=== PATIENT | female | born 1960 | race Caucasian/White ===

== ENCOUNTER 2021-01-02 20:03 | Emergency (ER) | payer MEDICAID, OTHER ==
[~2021-01-02] VITALS: Ht 165.1 cm; Wt 74.8 kg
[2021-01-02] MEDS ORDERED: cloNIDine HCL 0.1 MG TAB PO ONE (21:00)
[2021-01-02 22:39] VITALS: BP 175/84
== END 2021-01-02 22:39 ==
LOC: ER 20:06
DX: I16.0 Hypertensive urgency (principal); Z88.0 Allergy status to penicillin

== ENCOUNTER 2024-04-04 12:53 | Inpatient (IN) | payer OTHER, MEDICAID ==
[~2024-04-04] VITALS: Ht 165.1 cm; Wt 95.1 kg
--- NOTE | 2024-04-04 13:16 | ED.PDOC ---
HPI Comments 63 y.o female with PMHx of HTN and AFIB, presents to the ED via EMS for an evaluation of AFIB with RVR. EMS reports patient is coming from [facility] s/p AFIB with RVR and elevated troponin x 3. Patient reports last night she developed substernal chest pain, went to the ED at 0300 but at this time, patient denies any pain or symptoms. Patient had heart rate between 150-160 upon her presentation at [facility] and arrives at this ED with rate of 1280-130. Patient admits to using Heroine 2 days ago and had additional history of methamphetamine, marijuana and tobacco use. 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 Rest Cardiac Risk Factors: HTN PE Risk Factors: None History of: Similar pain in past Modifying Factors: Nothing Past Medical History PAST MEDICAL HISTORY: AFIB, HTN Surgical History: Tonsillectomy, 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 Family History Family History: No family hx of Cancer, No family hx of DM Social History Smoker: Cigarettes Alcohol: Denies ETOH Use Drugs: Heroin, Marijuana, Methamphetamine Lives In: Home Constitutional: denies: chills, diaphoresis, fatigue, fever, malaise, sweats, weakness, others EENTM: denies: blurred vision, double vision, ear bleeding, ear discharge, ear drainage, ear pain, ear ringing, eye pain, eye redness, hearing loss, mouth pain, mouth swelling, nasal discharge, nose bleeding, nose congestion, nose pain, photophobia, tearing, throat pain, throat swelling, voice changes, others Respiratory: denies: cough, hemoptysis, orthopnea, SOB at rest, shortness of breath, SOB with excertion, stridor, wheezing, others Cardiovascular: denies: chest pain, dizzy spells, diaphoresis, Dyspnea on exertion, edema, irregular heart beat, left arm pain, lightheadedness, palpitations, PND, syncope, others Gastrointestinal: denies: abdomen distended, abdominal pain, blood streaked bowels, constipated, diarrhea, dysphagia, difficulty swallowing, hematemesis, melena, nausea, poor appetite, poor fluid intake, rectal bleeding, rectal pain, vomiting, others Genitourinary: denies: abnormal vagina bleeding, burning, dyspareunia, dysuria, flank pain, frequency, hematuria, incontinence, pain, , vagina discharge, urgency, others Neurological: denies: dizziness, fainting, headache, left sided numbness, left sided weakness, numbness, paresthesia, pre-existing deficit, right sided numbness, right sided weakness, seizure, speech problems, tingling, tremors, weakness, others Musculoskeletal: denies: back pain, gout, joint pain, joint swelling, muscle pain, muscle stiffness, neck pain, others Integumetry: denies: bruises, change in color, change in hair/nails, dryness, laceration, lesions, lumps, rash, wounds, others Allergic/Immunocompromised: denies: Difficulty Healing, Frequent Infections, Hives, Itching, others Hematologic/Lymphatic: denies: anemia, blood clots, easy bleeding, easy bruising, swollen glands, others Endocrine: denies: excessive hunger, excessive sweating, excessive thirst, excessive urination, flushing, intolerance to cold, intolerance to heat, unexplained weight gain, unexplained weight loss, others Psychiatric: denies: anxiety, bipolar disorder, depression, hopeless, panic disorder, schizophrenia, sleepless, suicidal, others All Other Systems: Reviewed and Negative Physical Exam General Appearance: Moderate Distress HEENT: Normal ENT Inspection, Pharynx Normal, TMs Normal Neck: Full Range of Motion, Non-Tender, Normal, Normal Inspection Respiratory: Chest Non-Tender, Lungs Clear, No Accessory Muscle Use, No Respiratory Distress, Normal Breath Sounds Cardiovascular: Irregular, No Edema, No JVD, No Murmur, No Gallop, Tachycardia Breast Exam: Deferred Gastrointestinal: No Organomegaly, Non Tender, No Pulsatile Mass, Normal Bowel Sounds, Soft Genitalia: Deferred Pelvic: Deferred Rectal: Deferred Extremities: No calf tenderness, Normal capillary refill, No pedal edema Musculoskeletal : Apperance: Normal Neurologic: Alert, fox raiser II-XII nml as Tested, Motor Weakness, Normal Affect, Normal Mood, No Sensory Deficits Cerebellar Function: Normal Reflexes: Normal Skin: Dry, Normal Color, Warm Lymphatic: No Adenopathy Was a procedure done? Was a procedure done?: No CP Differential Dx Differential Diagnosis: A-fib, Angina, Electrolyte Disorder, Sinus Tachycardia X-Ray, Labs, Meds, VS Vital Signs Date Time Temp Pulse Resp B/P (MAP) Pulse Ox O2 Delivery O2 Flow Rate FiO2 04/04/24 13:00 98.6 116 18 141/70 (93) 96 Lab Test 04/04/24 14:41 04/04/24 13:49 Range/Units Prothrombin Time Pending Prothrombin Time INR Pending Activated Partial Thromboplast Time Pending Troponin I High Sensitivity Pending 5664 *H </=34 ng/L White Blood Count 7.8 4.4-10.8 10^3/uL Red Blood Count 5.70 H 4.0-5.20 10^6/uL Hemoglobin 17.2 H 12.2-16.2 g/dL Hematocrit 50.5 H 36.0-46.0 % Mean Corpuscular Volume 88.6 80.0-100.0 fL Mean Corpuscular Hemoglobin 30.2 28.0-32.0 pg Mean Corpuscular Hemoglobin Concent 34.1 32.0-36.0 g/dL Red Cell Distribution Width 14.2 11.8-14.3 % Platelet Count 204 140-450 10^3/uL Mean Platelet Volume 8.8 6.9-10.8 fL Neutrophils (%) (Auto) 68.9 37.0-80.0 % Lymphocytes (%) (Auto) 21.1 10.0-50.0 % Monocytes (%) (Auto) 9.0 0.0-12.0 % Eosinophils (%) (Auto) 0.4 0.0-7.0 % Basophils (%) (Auto) 0.6 0.0-2.0 % Neutrophils # (Auto) 5.4 1.6-8.6 10 ^3/uL Lymphocytes # (Auto) 1.6 0.4-5.4 10 ^3/uL Monocytes # (Auto) 0.7 0-1.3 10 ^3/uL Eosinophils # (Auto) 0 0-0.8 10 ^3/uL Basophils # (Auto) 0 0-0.2 10 ^3/uL Nucleated Red Blood Cells 0.4 % IV Hep-Lock has been established. The patient's troponin level came back now with 5764 The CBC is within normal limits The hospitalist did come down and see the patient immediately upon arrival to the emergency department The patient is being admitted at this time. The patient was on Cardizem as a 1 time dose what we are now starting the patient on a Cardizem drip. The patient is being admitted at this time. The patient was admitted to the [facility] The information of the elevated troponin level has been already passed on to Dr. Becerra who is the admitting hospitalist. Time of 1ST Reevaluation: 13:15 Reevaluation 1ST: Unchanged Patient Education/Counseling: Diagnosis, Treatment, Prognosis Family Education/Counseling: No Family Present Departure 1 Departure Time of Disposition: 14:48 Impression: Primary Impression: Atrial fibrillation with RVR Additional Impressions: Non-STEMI (non-ST elevated myocardial infarction) Elevated troponin Disposition: ADMITTED INPATIENT Admit to: [facility] Condition: Guarded Critical Care Note Critical Care Time?: Yes (45 min-critical care time only) Stability Stability form required: Yes Unstable for transfer: ICU, CCU, PCU, [facility] (Intensive VS monitoring), May require CPR (possible rapid decline), ED Physician Assesment (Clinical assesment) Heart Score Heart Score: Heart Score Response (Comments) Value History Moderate Suspicious 1 EKG Repolarization Disturb 1 Age >65 2 Risk Factors >3 or Hx ASHD 2 Troponin >3 x's Normal limit 2 Total 8 I personally scribed for PABLITO PHILLIPS MD ([email or web address]) on 04/04/24 at 13:16. Electronically submitted by Cyndy Vazquez ([facility]). PABLITO PHILLIPS MD Apr 04, 2024 13:16
[2024-04-04] MEDS ORDERED: HYDROcodone-ACET 5/325MG TAB PO PRN ×2 (14:15→14:30)
[2024-04-04] MEDS ORDERED: ACETAMINOPHEN 325 MG TAB PO PRN ×2 (14:15→14:30)
[2024-04-04] MEDS ORDERED: ONDANSETRON HCL 4 MG/2 ML VIAL IV PRN ×2 (14:15→14:30)
[2024-04-04] MEDS ORDERED: HEPARIN DRIP/D5W 100UNITS/ML 250 ML IV SCH (14:15)
[2024-04-04] MEDS ORDERED: MORPHINE SULFATE INJ 2 MG/ml SYRG IV PRN ×4 (14:15→14:30)
[2024-04-04] MEDS ORDERED: DOCUSATE SOD 100 MG CAP PO PRN ×2 (14:15→14:30)
[2024-04-04] MEDS ORDERED: NITROGLYCERIN 0.4 MG SL TAB SL PRN ×2 (14:15→14:30)
[2024-04-04] MEDS ORDERED: SODIUM CHLORIDE 0.9% 1,000 ML IV SCH (14:15)
[2024-04-04 14:34] LABS: Basophils # (auto) 0 10 ^3/uL (0-0.2); Basophils % (auto) 0.6 % (0.0-2.0); Eosinophils # (auto) 0 10 ^3/uL (0-0.8); Eosinophils % (auto) 0.4 % (0.0-7.0); Hematocrit 50.5 % (36.0-46.0); Hemoglobin 17.2 g/dL (12.2-16.2); Lymphocytes # (auto) 1.6 10 ^3/uL (0.4-5.4); Lymphocytes % (auto) 21.1 % (10.0-50.0); Mean Corpuscular Hemoglobin 30.2 pg (28.0-32.0); Mean Corpuscular Hgb Conc. 34.1 g/dL (32.0-36.0); Mean Corpuscular Volume 88.6 fL (80.0-100.0); Monocytes # (auto) 0.7 10 ^3/uL (0-1.3); Neutrophils # (auto) 5.4 10 ^3/uL (1.6-8.6); Neutrophils % (auto) 68.9 % (37.0-80.0); Nucleated Red Blood Cells % 0.4 %; Platelet Count (auto) 204 10^3/uL (140-450); Red Cell Distribution Width 14.2 % (11.8-14.3); White Blood Cell 7.8 10^3/uL (4.4-10.8)
[2024-04-04 15:19] LABS: INR 1.07 (0.9-1.15); Partial Thromboplastin Time 26.2 SEC (24.5-34.5); Prothrombin Time 11.3 sec (9.3-11.8)
--- NOTE | 2024-04-04 16:36 | DVHHP2 ---
History of Present Illness Reason for Visit: Patient was transferred from [place] for NSTEMI History of Present Illness 63-year-old female with a known history of hypertension, previous history of ch ronic AFib was on Eliquis in the past currently off the Eliquis for almost a year presented to the hospital with chest pain shortness breath found to have elevated troponin at [facility]. Patient was transferred to higher level of care for possible coronary angiogram as per Cardiology recommendations at [facility] Dr. Guillory. Patient is currently denies any chest pain shortness of breath. Denies any known cardiac history including cardiac stents but does have previous history of chronic AFib. Patient is currently on heparin drip as well as Cardizem drip. Cardiovascular: AFIB, HTN Past Surgical History: None Smoke: No ALCOHOL: none Review of Systems Review of Systems Twelve review of system are negative besides mentioned above. Allergies: Coded Allergies: Penicillins (Verified Allergy, Unknown, 04/04/24) Medications Current Medications Medications Dose Ordered Sig/Chelsea Route Start Time Stop Time Status Last Admin Dose Admin Ondansetron HCl 4 mg Q4HP PRN IV 04/04/24 14:30 Morphine Sulfate 2 mg Q4HPRN PRN IV 04/04/24 14:30 Morphine Sulfate 2 mg Q30M PRN IV 04/04/24 14:30 Sodium Chloride 1,000 ml @ 120 mls/hr Q8H20M IV 04/04/24 14:30 Acetaminophen/ Hydrocodone Bitart 1 tab Q4HP PRN PO 04/04/24 14:30 Docusate Sodium 100 mg BIDPRN PRN PO 04/04/24 14:30 Ascorbic Acid 500 mg BID PO 04/04/24 22:00 Acetaminophen 650 mg Q6HP PRN PO 04/04/24 14:30 Nitroglycerin 0.4 mg Q5MINP PRN SL 04/04/24 14:30 Aspirin 81 mg DAILY PO 04/05/24 10:00 Atorvastatin Calcium 40 mg HS PO 04/04/24 22:00 Heparin Sodium/ Dextrose 250 ml @ 9 mls/hr Q24H IV 04/04/24 14:30 Exam Vital Signs Vital Signs Date Time Temp Pulse Resp B/P (MAP) Pulse Ox O2 Delivery O2 Flow Rate FiO2 04/04/24 13:00 98.6 116 18 141/70 (93) 96 Exam HEENT pupils are reactive Neck is supple CV is S1-S2 regular rate and rhythm Respiratory diminished breath sounds bases GI positive bowel sound 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 Labs/Xrays Labs Test 04/04/24 14:41 04/04/24 13:49 Range/Units Prothrombin Time 11.3 9.3-11.8 sec Prothrombin Time INR 1.07 0.9-1.15 Activated Partial Thromboplast Time 26.2 24.5-34.5 SEC Troponin I High Sensitivity 6518 *H </=34 ng/L White Blood Count 7.8 4.4-10.8 10^3/uL Red Blood Count 5.70 H 4.0-5.20 10^6/uL Hemoglobin 17.2 H 12.2-16.2 g/dL Hematocrit 50.5 H 36.0-46.0 % Mean Corpuscular Volume 88.6 80.0-100.0 fL Mean Corpuscular Hemoglobin 30.2 28.0-32.0 pg Mean Corpuscular Hemoglobin Concent 34.1 32.0-36.0 g/dL Red Cell Distribution Width 14.2 11.8-14.3 % Platelet Count 204 140-450 10^3/uL Mean Platelet Volume 8.8 6.9-10.8 fL Neutrophils (%) (Auto) 68.9 37.0-80.0 % Lymphocytes (%) (Auto) 21.1 10.0-50.0 % Monocytes (%) (Auto) 9.0 0.0-12.0 % Eosinophils (%) (Auto) 0.4 0.0-7.0 % Basophils (%) (Auto) 0.6 0.0-2.0 % Neutrophils # (Auto) 5.4 1.6-8.6 10 ^3/uL Lymphocytes # (Auto) 1.6 0.4-5.4 10 ^3/uL Monocytes # (Auto) 0.7 0-1.3 10 ^3/uL Eosinophils # (Auto) 0 0-0.8 10 ^3/uL Basophils # (Auto) 0 0-0.2 10 ^3/uL Nucleated Red Blood Cells 0.4 % Assessment/Plan Assessment/Plan 63-year-old female with known history of hypertension with a previous history of chronic AFib currently not on any anticoagulation presented to [facility] with chest pain found to have NSTEMI as well as AFib with RVR. 1. NSTEMI 2. AFib with RVR 3. Hypertension -admitted to [facility], heparin drip, Cardizem drip, 2D echo cardiology consultation, aspirin and statin -keep NPO for possible left heart catheterization. Plan discussed with: Patient My Orders Orders - MARIAH VEGA MD Procedure Category Date Status Time Admit ADMIT 04/04/24 Transmitted 14:07 Code Status CODE 04/04/24 Transmitted 14:07 Hydrocodone-Acet PHA 04/04/24 In Process 5/325mg Tab ([place] 14:15 Complete Blood Count LAB 04/05/24 Verified 04:00 Comprehensive LAB 04/05/24 Verified Metabolic Panel 04:00 Cardiac DIET 04/04/24 Transmitted Diet-2gna,Lofat,Lochol Dinner Echo 2d Mode Cardiac US 04/04/24 Logged DOP 14:07 Condition: Stable [facility] 04/04/24 In Process 14:07 Stat Ekg For Chest [facility] 04/04/24 In Process Pain 14:07 Notify Md Of Changes [facility] 04/04/24 In Process From Base 14:07 Flatwork Feeder For [facility] 04/04/24 In Process 24 Hours 14:07 Emergency Dysrhythmia [facility] 04/04/24 In Process Protocol 14:07 Rhythm Strips Once [facility] 04/04/24 In Process Every Shift 14:07 Oxygen By Nasal RT 04/04/24 Transmitted Cannula 14:07 Platelet Monitoring [facility] 04/04/24 In Process 14:07 Heparin Per [facility] 04/04/24 In Process Standardized Proce 14:07 Discontinue All Im [facility] 04/04/24 In Process Injections 14:07 Stat Ekg For Chest [facility] 04/04/24 In Process Pain 14:07 * Cardiology Consult CONS 04/04/24 Transmitted 14:07 Troponin-I Hs LAB 04/04/24 Logged 15:11 Ondansetron Hcl PHA 04/04/24 In Process (Zofran) 14:30 Morphine Sulfate PHA 04/04/24 In Process Injection 14:30 Morphine Sulfate PHA 04/04/24 In Process Injection 14:30 Sodium Chloride 0.9% PHA 04/04/24 In Process 14:30 Hydrocodone-Acet PHA 04/04/24 In Process 5/325mg Tab ([place] 14:30 Docusate Sodium PHA 04/04/24 In Process Capsule (Colace 14:30 Ascorbic Acid Tablet PHA 04/04/24 In Process (Vitamin C Tablet) 22:00 Acetaminophen Tablet PHA 04/04/24 In Process (Tylenol Tablet) 14:30 Nitroglycerin PHA 04/04/24 In Process Sublingual (Ntrostat 14:30 Aspirin Tablet PHA 04/05/24 In Process 10:00 Atorvastatin (Lipitor) PHA 04/04/24 In Process 22:00 Heparin Drip/D5w PHA 04/04/24 In Process 100units/Ml 14:30 PTPTT LAB 04/04/24 Logged 21:00 Heparin Per Pharmacy [facility] 04/04/24 In Process Protocol 16:02 Basic Metabolic Panel LAB 04/04/24 Verified 16:32 Date of Service: Apr 04, 2024 Billing Provider: MARIAH VEGA MD Common Visit Codes: NOT BILLABLE MARIAH VEGA MD Apr 04, 2024 16:36
[2024-04-04] MEDS ORDERED: EPINEPHrine HCL 1 MG/10 ML SYRG IV ONE (16:45)
[2024-04-04] MEDS: EPINEPHrine HCL 1 MG/10 ML SYRG ONE (16:54)
[2024-04-04] MEDS: dilTIAZem 125mg/125ml BAG KIT 125 ML IV ONE (17:24)
[2024-04-04 18:05] LABS: Chloride 102 mmol/L (98-107); Potassium 3.8 mmol/L (3.5-5.1); Sodium 137 mmol/L (136-145)
[2024-04-04 18:06] LABS: Anion Gap 9 (5-15); Calcium 9.5 mg/dL (8.7-10.4); Carbon Dioxide 26 mmol/L (20-31)
[2024-04-04 18:09] LABS: Urine Bacteria None Seen /hpf (None Seen)
[2024-04-04 18:11] LABS: BUN/Creatinine Ratio 12.9 (10.0-20.0); Blood Urea Nitrogen 11 mg/dL (9-23)
[2024-04-04 18:13] LABS: Glucose 117 mg/dL (74-106)
[2024-04-04 18:15] VITALS: PULSE 138; RESP 22; O2SAT 97
[2024-04-04 18:24] LABS: Urine Blood Negative /uL (Negative); Urine Clarity Clear (Clear); Urine Color Light-Yellow (Yellow); Urine Protein, UAD TRACE (Negative); Urine Specific Gravity 1.014 (1.001-1.035); Urine Squamous Epithelial Cell FEW /hpf (<5); Urine Urobilinogen Normal (Negative); Urine WBC 2 /hpf (0 - 5); Urine pH 7.5 (5.0-9.0)
[2024-04-04] MEDS: HEPARIN DRIP/D5W 100UNITS/ML 250 ML IV SCH (18:25)
[2024-04-04] MEDS: SODIUM CHLORIDE 0.9% 1,000 ML IV SCH (18:57)
[2024-04-04] MEDS: AMIODARONE BOLUS KIT 100 ML IV ONE (19:45)
[2024-04-04] MEDS: FUROSEMIDE 20 MG/2 ML VIAL IV ONE (19:45)
[2024-04-04 19:56] VITALS: PULSE 127; RESP 26; O2SAT 98
--- NOTE | 2024-04-04 20:12 | DVH ---
CHEST RADIOGRAPH Indication: CHEST PAIN Technique: Single frontal view of the chest was obtained Comparison: None Findings/ IMPRESSION: Mild pulmonary vascular congestion. No focal consolidation or pneumothorax. No pleural effusions
[2024-04-04] MEDS: AMIODARONE 450mg/250ml AE 250 ML IV SCH (20:27)
[2024-04-04] MEDS ORDERED: ATORVASTATIN 20 MG TAB PO SCH (22:00)
[2024-04-04] MEDS ORDERED: ASCORBIC ACID 500 MG TAB PO SCH (22:00)
[2024-04-04] MEDS: ATORVASTATIN 20 MG TAB PO SCH (22:10)
[2024-04-04] MEDS: ASCORBIC ACID 500 MG TAB PO SCH (22:11)
[2024-04-04 22:16] LABS: INR 1.11 (0.9-1.15); Prothrombin Time 11.7 sec (9.3-11.8)
[2024-04-05] VITALS (14 sets, daily range): BP systolic 138–156; BP diastolic 87–111; PULSE 109–142; RESP 16–26; TEMP 98.1–98.9; O2SAT 95–99
[2024-04-05 01:21] LABS: INR 1.1 (0.9-1.15); Partial Thromboplastin Time 32.1 SEC (24.5-34.5); Prothrombin Time 11.6 sec (9.3-11.8)
[2024-04-05] MEDS: HEPARIN SODIUM (PORCINE) 5000 UNITS/ML 1ML VIAL IV ONE (01:45)
[2024-04-05] MEDS: HEPARIN DRIP/D5W 100UNITS/ML 250 ML IV SCH (01:45)
[2024-04-05] MEDS: AMIODARONE 450mg/250ml AE 250 ML IV SCH (01:45)
--- NOTE | 2024-04-05 07:36 | DVHINCON2 ---
Date of service: Apr 05, 2024 History of Present Illness 63 yo F non compliant, heroin addict, hx of afib not on oac 2/2 to mouth bleeding, htn obesity admitted for afib rvr and nstemi. pt was tx from [facility]. overnight pt has afib rvr but is now withdrawing from heroin asking for methadone. pt seen with RN Past Medical History reviewed Allergies: Coded Allergies: Penicillins (Verified Allergy, Unknown, 04/04/24) Current Medications Current Medications Medications (Trade) Dose Ordered Sig/Chelsea Route PRN Reason Start Time Stop Time Status Last Admin Sodium Chloride 1,000 ml @ 120 mls/hr Q8H20M IV 04/04/24 14:15 04/04/24 14:23 DC Acetaminophen/ Hydrocodone Bitart ([place] 5/325MG Tab) 1 tab Q4HP PRN PO MODERATE PAIN (4-6 PAIN SCALE) 04/04/24 14:15 04/04/24 14:23 DC Ondansetron HCl (Zofran) 4 mg Q4HP PRN IV NAUSEA / VOMITING 04/04/24 14:15 04/04/24 14:23 DC Docusate Sodium (Colace Capsule) 100 mg BIDPRN PRN PO FOR CONSTIPATION 04/04/24 14:15 04/04/24 14:23 DC Ascorbic Acid (Vitamin C Tablet) 500 mg BID PO 04/04/24 22:00 04/04/24 14:23 DC Acetaminophen (Tylenol Tablet) 650 mg Q6HP PRN PO PAIN SCALE 1-3 OR TEMP>100.4 04/04/24 14:15 04/04/24 14:23 DC Morphine Sulfate 2 mg Q4HPRN PRN IV SEVERE PAIN (7-10 PAIN SCALE) 04/04/24 14:15 04/04/24 14:23 DC Nitroglycerin (Ntrostat Sublingual) 0.4 mg Q5MINP PRN SL FOR CHEST PAIN 04/04/24 14:15 04/04/24 14:23 DC Morphine Sulfate 2 mg Q30M PRN IV FOR CHEST PAIN 04/04/24 14:15 04/04/24 14:23 DC Heparin Sodium/ Dextrose 250 ml @ 9 mls/hr Q24H IV 04/04/24 14:15 04/04/24 14:23 DC Aspirin 81 mg DAILY PO 04/05/24 10:00 04/04/24 14:23 DC Atorvastatin Calcium (Lipitor) 40 mg HS PO 04/04/24 22:00 04/04/24 14:23 DC Ondansetron HCl (Zofran) 4 mg Q4HP PRN IV NAUSEA / VOMITING 04/04/24 14:30 Morphine Sulfate 2 mg Q4HPRN PRN IV SEVERE PAIN (7-10 PAIN SCALE) 04/04/24 14:30 Morphine Sulfate 2 mg Q30M PRN IV FOR CHEST PAIN 04/04/24 14:30 Sodium Chloride 1,000 ml @ 120 mls/hr Q8H20M IV 04/04/24 14:30 04/05/24 05:02 Acetaminophen/ Hydrocodone Bitart ([place] 5/325MG Tab) 1 tab Q4HP PRN PO MODERATE PAIN (4-6 PAIN SCALE) 04/04/24 14:30 Docusate Sodium (Colace Capsule) 100 mg BIDPRN PRN PO FOR CONSTIPATION 04/04/24 14:30 Ascorbic Acid (Vitamin C Tablet) 500 mg BID PO 04/04/24 22:00 04/04/24 22:11 Acetaminophen (Tylenol Tablet) 650 mg Q6HP PRN PO PAIN SCALE 1-3 OR TEMP>100.4 04/04/24 14:30 Nitroglycerin (Ntrostat Sublingual) 0.4 mg Q5MINP PRN SL FOR CHEST PAIN 04/04/24 14:30 Aspirin 81 mg DAILY PO 04/05/24 10:00 Atorvastatin Calcium (Lipitor) 40 mg HS PO 04/04/24 22:00 04/04/24 22:10 Heparin Sodium/ Dextrose 250 ml @ 9 mls/hr Q24H IV 04/04/24 14:30 04/05/24 01:35 DC 04/04/24 18:25 Amiodarone HCl 250 ml @ 33.333 mls/ hr Q7H30M IV 04/04/24 19:45 04/05/24 01:44 DC 04/04/24 20:27 Amiodarone HCl 250 ml @ 16.667 mls/ hr Q15H IV 04/05/24 01:45 04/05/24 07:27 Heparin Sodium/ Dextrose 250 ml @ 12 mls/hr [id number] IV 04/05/24 01:45 04/05/24 05:41 DC 04/05/24 01:45 Review of Systems 10 pt ros otherwise negative +agitation, +sob Vital Signs Vital Signs Date Time Temp Pulse Resp B/P (MAP) Pulse Ox O2 Delivery O2 Flow Rate FiO2 04/05/24 06:30 122 17 159/111 (127) 97 04/04/24 19:56 Room Air* 2 N/A Nasal Cannula* 04/04/24 19:30 98.2 98.2 Physical Exam nad s1 s2 irregular tachycardic diffuse rhonchi abd soft obese nt/nd trivia ledema Labs/Diagnostic Data Labs Test 04/05/24 00:52 04/04/24 18:09 04/04/24 17:44 04/04/24 13:49 Range/Units Prothrombin Time 11.6 9.3-11.8 sec Prothrombin Time INR 1.10 0.9-1.15 Activated Partial Thromboplast Time 32.1 24.5-34.5 SEC Urine Color Light-yellow Yellow Urine Clarity Clear Clear Urine pH 7.5 5.0-9.0 Urine Specific [place] 1.014 1.001-1.035 Urine Protein Trace H Negative Urine Ketones Negative Negative Urine Blood Negative Negative /uL Urine Nitrite Negative Negative Urine Bilirubin Negative Negative Urine Urobilinogen Normal Negative mg/dL Urine Leukocyte Esterase Negative Negative /uL Urine RBC 1 0 - 4 /hpf Urine WBC 2 0 - 5 /hpf Urine Squamous Epithelial Cells Few <5 /hpf Urine Bacteria None seen None Seen /hpf Urine Glucose Normal Normal mg/dL Sodium Level 137 136-145 mmol/L Potassium Level 3.8 3.5-5.1 mmol/L Chloride Level 102 98-107 mmol/L Carbon Dioxide Level 26 20-31 mmol/L Anion Gap 9 5-15 Blood Urea Nitrogen 11 9-23 mg/dL Creatinine 0.85 0.550-1.02 mg/dL Glomerular Filtration Rate Calc 76 >90 mL/min BUN/Creatinine Ratio 12.9 10.0-20.0 Serum Glucose 117 H 74-106 mg/dL Calcium Level 9.5 8.7-10.4 mg/dL Troponin I High Sensitivity 9252 *H </=34 ng/L White Blood Count 7.8 4.4-10.8 10^3/uL Red Blood Count 5.70 H 4.0-5.20 10^6/uL Hemoglobin 17.2 H 12.2-16.2 g/dL Hematocrit 50.5 H 36.0-46.0 % Mean Corpuscular Volume 88.6 80.0-100.0 fL Mean Corpuscular Hemoglobin 30.2 28.0-32.0 pg Mean Corpuscular Hemoglobin Concent 34.1 32.0-36.0 g/dL Red Cell Distribution Width 14.2 11.8-14.3 % Platelet Count 204 140-450 10^3/uL Mean Platelet Volume 8.8 6.9-10.8 fL Neutrophils (%) (Auto) 68.9 37.0-80.0 % Lymphocytes (%) (Auto) 21.1 10.0-50.0 % Monocytes (%) (Auto) 9.0 0.0-12.0 % Eosinophils (%) (Auto) 0.4 0.0-7.0 % Basophils (%) (Auto) 0.6 0.0-2.0 % Neutrophils # (Auto) 5.4 1.6-8.6 10 ^3/uL Lymphocytes # (Auto) 1.6 0.4-5.4 10 ^3/uL Monocytes # (Auto) 0.7 0-1.3 10 ^3/uL Eosinophils # (Auto) 0 0-0.8 10 ^3/uL Basophils # (Auto) 0 0-0.2 10 ^3/uL Nucleated Red Blood Cells 0.4 % Assessment nstemi afib rvr obesity heroin addiction narcotic withdrawal HTN r/o chf Plan/Recommendation very high risk pt ,this is emergency case pt is high risk for decompensation iv ativan tx for withdrawal per hospitalist group hold heparin gtt [facility] today afib--iv amio and digoxin, wont be controlled until her agitation is better 40 mins critical care time spent Plan discussed with: Patient JAEL AGUILAR MD Apr 05, 2024 07:36
[2024-04-05] MEDS ORDERED: LORazepam 2MG/ML-1ML VIAL IV ONE (07:45)
[2024-04-05] MEDS: LORazepam 2MG/ML-1ML VIAL IV ONE (08:10)
[2024-04-05] MEDS: IODIXANOL 320MG/ML 100ML BTL IV ONE (08:39)
[2024-04-05] MEDS: METOPROLOL TARTRATE 1MG/1ML-5ML VIAL IV ONE (09:31)
[2024-04-05] MEDS ORDERED: ASPirin 81 mg TAB PO SCH (10:00)
[2024-04-05] MEDS: ANGIOMAX 250 MG VIAL IV ONE (10:46)
[2024-04-05] MEDS: VERAPAMIL 2.5MG/ML INJ 2ML VIAL IV ONE (10:46)
[2024-04-05] MEDS: fentaNYL CITRATE 100 MCG/2 ML VL ONE (10:47)
[2024-04-05] MEDS: SODIUM CHL 0.9% 0 ML ONE (10:48)
[2024-04-05] MEDS: MIDAZOLAM HCL 2MG/2ML 2ml VIAL (1mg/ml) ONE (10:48)
[2024-04-05] MEDS: LIDOCAINE 2%HCL (LOCAL ANESTH.) INJ 20ML MDV ONE (10:48)
--- NOTE | 2024-04-05 11:42 | DVHOP2 ---
Operative Report Operative Report CARDIAC DIVISION ORDER ANALYST PROCEDURE REPORT [place], [place] Date of Service: 04/05/24 [place]ingo Attendant: Jael Aguilar MD PROCEDURES PERFORMED: Coronary angiogram, left heart catheterization, conscious sedation administration and supervision, less than 15 minutes; fluoroscopy use and interpretation. PREOPERATIVE DIAGNOSES: nstemi POSTOP DIAGNOSIS: nstemi DESCRIPTION OF PROCEDURE: The patient or appropriate family signed informed consent understanding the risks, benefits and alternatives of the procedure, they wished to proceed. The patient was brought to the cardiac laboratory director in n.p.o. state. The patient was prepped in a sterile fashion. Sedation was used per cardiac cath protocol. I administered 2 mL of 2% lidocaine to the right wrist. With an antegrade front wall puncture. I cannulated the right radial artery and placed a 6-Macedonian Glidesheath slender. Next, an intra-arterial spasmolytic was administered. Next, a - 5 Macedonian [place] catheter JR4 and JL3.5 and were used for coronary angiogram and LVEDP measurement and pressure pullback. At the completion of procedure, all guides and wires were removed, and there were no immediate complications. 4000 u of iv heparin give FINDINGS: RCA: Moderate vessel off the right sinus of Valsalva, there is no severe flow limiting stenosis. sluggish flow suggestive of microvascular disease LEFT MAIN: Moderate size left main, it bifurcates into LAD and circumflex. CIRCUMFLEX: Moderate caliber vessel coming off the left main .OM1 is moderate vessel and is patent until the inferior branch has a tiny 99% stenosis s. LAD: LAD is a moderate caliber vessel coming of the left main. no severe plaquing LVEDP of 18 mmhg npatient durign procedure became combative, moving around non stop, trying to get out of bed and made procedure nearly unsafe. procedure done as quickly as possible as pt is withdrawing from her drugs and causing significant disruption . pt stable at end of procedure CONCLUSIONS: 1. 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 afib rvr 3. drug abuse with active withdrawal PLAN: Aggressive risk factor modification and medical management for the patient. start doac iv digoxin pt needs help with drug withdrawal overall very poor prognosis given ongoing drug abuse JAEL AGUILAR MD Apr 05, 2024 11:42
[2024-04-05] MEDS: HEPARIN SODIUM (PORCINE) 5000 UNITS/ML 1ML VIAL ONE (11:45)
[2024-04-05] MEDS: DIGOXIN (250MCG/ML) 2 ML AMPULE IV ONE (12:44)
--- NOTE | 2024-04-05 13:58 | ECG ---
[facility] Test Date: 2024-04-05 Test Time: 07:53:29 Pat Name: KADEN JOHNSON Department: ER Room: 0214T Gender: F Cane Loader: GP : [id number] Requested By: PABLITO PHILLIPS Order Number: [id number] Reading MD: Jam Hart Measurements Intervals [place] Rate: 139 P: 0 GA: 0 QRS: 66 QRSD: 79 T: 51 QT: 334 QTc: 508 Interpretive Statements Atrial fibrillation Prolonged QT interval Electronically Signed On 04-06-2024 18:22:11 PST by Jam Hart Please click the below link to view image of tracing.
[2024-04-05] MEDS: ASPirin 81 mg TAB PO SCH (15:01)
[2024-04-05] MEDS: LORazepam 2MG/ML-1ML VIAL IV PRN (15:01)
--- NOTE | 2024-04-05 16:30 | DVHPN2 ---
Subjective Overnight events noted. Patient underwent left heart catheterization which shows evidence of one-vessel coronary artery disease in obtuse marginal. 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 Medications Current Medications Medications Dose Ordered Sig/Chelsea Route Start Time Stop Time Status Last Admin Dose Admin Ondansetron HCl 4 mg Q4HP PRN IV 04/04/24 14:30 Morphine Sulfate 2 mg Q4HPRN PRN IV 04/04/24 14:30 Morphine Sulfate 2 mg Q30M PRN IV 04/04/24 14:30 Sodium Chloride 1,000 ml @ 120 mls/hr Q8H20M IV 04/04/24 14:30 04/05/24 05:02 120 MLS/HR Acetaminophen/ Hydrocodone Bitart 1 tab Q4HP PRN PO 04/04/24 14:30 Docusate Sodium 100 mg BIDPRN PRN PO 04/04/24 14:30 Ascorbic Acid 500 mg BID PO 04/04/24 22:00 04/05/24 15:01 500 MG Acetaminophen 650 mg Q6HP PRN PO 04/04/24 14:30 Nitroglycerin 0.4 mg Q5MINP PRN SL 04/04/24 14:30 Aspirin 81 mg DAILY PO 04/05/24 10:00 04/05/24 15:01 81 MG Atorvastatin Calcium 40 mg HS PO 04/04/24 22:00 04/04/24 22:10 40 MG Amiodarone HCl 250 ml @ 16.667 mls/ hr Q15H IV 04/05/24 01:45 04/05/24 07:27 16.667 MLS/HR Apixaban 5 mg BID PO 04/05/24 22:00 Alprazolam 0.5 mg BID PO 04/05/24 22:00 Lorazepam 1 mg Q6HP PRN IV 04/05/24 14:30 04/05/24 15:01 1 MG Metoprolol Tartrate 25 mg BID PO 04/05/24 22:00 Laboratory Results Laboratory Tests 04/04/24 13:49 04/04/24 17:44 Chemistry Test 04/04/24 17:44 Calcium Level 9.5 mg/dL (8.7-10.4) Coagulation Test 04/04/24 21:44 04/05/24 00:52 Prothrombin Time 11.7 sec (9.3-11.8) 11.6 sec (9.3-11.8) Prothrombin Time INR 1.11 (0.9-1.15) 1.10 (0.9-1.15) Activated Partial Thromboplast Time 30.0 SEC (24.5-34.5) 32.1 SEC (24.5-34.5) Urinalysis Test 04/04/24 18:09 Urine Color Light-yellow (Yellow) Urine Clarity Clear (Clear) Urine pH 7.5 (5.0-9.0) Urine Specific [place] 1.014 (1.001-1.035) Urine Protein Trace (Negative) H Urine Ketones Negative (Negative) Urine Blood Negative /uL (Negative) Urine Nitrite Negative (Negative) Urine Bilirubin Negative (Negative) Urine Urobilinogen Normal mg/dL (Negative) Urine Leukocyte Esterase Negative /uL (Negative) Urine RBC 1 /hpf (0 - 4) Urine WBC 2 /hpf (0 - 5) Urine Squamous Epithelial Cells Few /hpf (<5) Urine Bacteria None seen /hpf (None Seen) Urine Glucose Normal mg/dL (Normal) Assessment/Plan Assessment/Plan 63-year-old female with known history of hypertension with a previous history of chronic AFib currently not on any anticoagulation presented to [facility] with chest pain found to have NSTEMI as well as AFib with RVR. 1. NSTEMI status post left heart catheterization she was evidence of one-vessel coronary artery disease in obtuse marginal 2. AFib with RVR 3. Hypertension -amiodarone drip, heparin drip, aspirin and statin -discharge plan per Cardiology. Plan discussed with: Patient My Orders Orders - MARIAH VEGA MD Procedure Category Date Status Time Npo Except For CHRISTOS 04/04/24 In Process Medications 16:36 Alprazolam Tablet PHA 04/05/24 In Process (Xanax Tablet) 22:00 Lorazepam 2mg/Ml Inj PHA 04/05/24 In Process (Ativan Inj) 14:30 Cardiac DIET 04/05/24 Transmitted Diet-2gna,Lofat,Lochol Dinner Metoprolol Tartrate PHA 04/05/24 In Process Tablet (Lopressor Ta 22:00 Date of Service: Apr 05, 2024 Billing Provider: MARIAH VEGA MD Common Visit Codes: [id number] INP/OBS CARE(MOD) MARIAH VEGA MD Apr 05, 2024 16:30
[2024-04-05] MEDS: ALPRAZolam 0.5 MG TAB PO SCH (22:14)
[2024-04-05] MEDS: APIXABAN 5 MG TAB PO SCH (22:15)
[2024-04-05] MEDS: METOPROLOL TARTRATE 25 MG TAB PO SCH (22:15)
[2024-04-06 01:00] VITALS: BP 159/102; PULSE 121; RESP 28; TEMP 97.8; O2SAT 97
[2024-04-06 05:00] VITALS: BP 126/69; PULSE 67; RESP 24; TEMP 97.7; O2SAT 95
[2024-04-06 08:00] VITALS: PULSE 67
[2024-04-06 09:00] VITALS: BP 121/71; PULSE 71; RESP 16; TEMP 98.4; O2SAT 97
--- NOTE | 2024-04-06 13:22 | DVHPN2 ---
Progress Note Objective vital signs Vital Sign Date Time Temp Pulse Resp B/P (MAP) Pulse Ox O2 Delivery O2 Flow Rate FiO2 04/06/24 10:01 71 121/71 04/06/24 09:00 98.4 16 97 98.4 04/06/24 08:00 Room Air* 0 21 Total Intake and Output 04/05/24 04/05/24 04/06/24 15:00 23:00 07:00 Intake Total 66.668 ml 136.667 ml 150 ml Output Total 3 ml Balance 66.668 ml 136.667 ml 147 ml medications Current Medications Medications Dose Ordered Sig/Chelsea Route Start Time Stop Time Status Last Admin Dose Admin Ondansetron HCl 4 mg Q4HP PRN IV 04/04/24 14:30 Morphine Sulfate 2 mg Q4HPRN PRN IV 04/04/24 14:30 Morphine Sulfate 2 mg Q30M PRN IV 04/04/24 14:30 Sodium Chloride 1,000 ml @ 120 mls/hr Q8H20M IV 04/04/24 14:30 04/05/24 05:02 120 MLS/HR Acetaminophen/ Hydrocodone Bitart 1 tab Q4HP PRN PO 04/04/24 14:30 Docusate Sodium 100 mg BIDPRN PRN PO 04/04/24 14:30 Ascorbic Acid 500 mg BID PO 04/04/24 22:00 04/06/24 10:01 500 MG Acetaminophen 650 mg Q6HP PRN PO 04/04/24 14:30 Nitroglycerin 0.4 mg Q5MINP PRN SL 04/04/24 14:30 Aspirin 81 mg DAILY PO 04/05/24 10:00 04/06/24 10:02 81 MG Atorvastatin Calcium 40 mg HS PO 04/04/24 22:00 04/05/24 22:15 40 MG Amiodarone HCl 250 ml @ 16.667 mls/ hr Q15H IV 04/05/24 01:45 04/06/24 00:22 16.667 MLS/HR Apixaban 5 mg BID PO 04/05/24 22:00 04/06/24 10:01 5 MG Alprazolam 0.5 mg BID PO 04/05/24 22:00 04/06/24 10:01 0.5 MG Lorazepam 1 mg Q6HP PRN IV 04/05/24 14:30 04/05/24 15:01 1 MG Metoprolol Tartrate 25 mg BID PO 04/05/24 22:00 04/06/24 10:01 25 MG laboratory and microbiology Laboratory Tests 04/04/24 17:44 04/04/24 13:49 Test 04/04/24 17:44 Range/Units Serum Glucose 117 H 74-106 mg/dL JAEL AGUILAR MD Apr 06, 2024 13:22
[2024-04-06] MEDS: AMIODARONE HCL 200 MG TAB PO ONE (14:49)
[2024-04-06] MEDS ORDERED: APIX5TAB PO (15:02)
[2024-04-06] MEDS ORDERED: ATOR20TA50 PO (15:02)
[2024-04-06] MEDS ORDERED: AMIO200T13 PO (15:02)
[2024-04-06] MEDS ORDERED: MET25T PO (15:02)
--- NOTE | 2024-04-06 15:06 | DVHDS2 ---
Discharge Summary Date of Admission Apr 04, 2024 at 14:07 Date of Discharge: Apr 06, 2024 Labs/Diagnostic Data: Laboratory Results Test 04/05/24 00:52 04/04/24 18:09 04/04/24 17:44 04/04/24 13:49 Prothrombin Time 11.6 sec (9.3-11.8) Prothrombin Time INR 1.10 (0.9-1.15) Activated Partial Thromboplast Time 32.1 SEC (24.5-34.5) Urine Color Light-yellow (Yellow) Urine Clarity Clear (Clear) Urine pH 7.5 (5.0-9.0) Urine Specific [place] 1.014 (1.001-1.035) Urine Protein Trace (Negative) Urine Ketones Negative (Negative) Urine Blood Negative /uL (Negative) Urine Nitrite Negative (Negative) Urine Bilirubin Negative (Negative) Urine Urobilinogen Normal mg/dL (Negative) Urine Leukocyte Esterase Negative /uL (Negative) Urine RBC 1 /hpf (0 - 4) Urine WBC 2 /hpf (0 - 5) Urine Squamous Epithelial Cells Few /hpf (<5) Urine Bacteria None seen /hpf (None Seen) Urine Glucose Normal mg/dL (Normal) Sodium Level 137 mmol/L (136-145) Potassium Level 3.8 mmol/L (3.5-5.1) Chloride Level 102 mmol/L (98-107) Carbon Dioxide Level 26 mmol/L (20-31) Anion Gap 9 (5-15) Blood Urea Nitrogen 11 mg/dL (9-23) Creatinine 0.85 mg/dL (0.550-1.02) Glomerular Filtration Rate Calc 76 mL/min (>90) BUN/Creatinine Ratio 12.9 (10.0-20.0) Serum Glucose 117 mg/dL (74-106) Calcium Level 9.5 mg/dL (8.7-10.4) Troponin I High Sensitivity 9252 ng/L (</=34) White Blood Count 7.8 10^3/uL (4.4-10.8) Red Blood Count 5.70 10^6/uL (4.0-5.20) Hemoglobin 17.2 g/dL (12.2-16.2) Hematocrit 50.5 % (36.0-46.0) Mean Corpuscular Volume 88.6 fL (80.0-100.0) Mean Corpuscular Hemoglobin 30.2 pg (28.0-32.0) Mean Corpuscular Hemoglobin Concent 34.1 g/dL (32.0-36.0) Red Cell Distribution Width 14.2 % (11.8-14.3) Platelet Count 204 10^3/uL (140-450) Mean Platelet Volume 8.8 fL (6.9-10.8) Neutrophils (%) (Auto) 68.9 % (37.0-80.0) Lymphocytes (%) (Auto) 21.1 % (10.0-50.0) Monocytes (%) (Auto) 9.0 % (0.0-12.0) Eosinophils (%) (Auto) 0.4 % (0.0-7.0) Basophils (%) (Auto) 0.6 % (0.0-2.0) Neutrophils # (Auto) 5.4 10 ^3/uL (1.6-8.6) Lymphocytes # (Auto) 1.6 10 ^3/uL (0.4-5.4) Monocytes # (Auto) 0.7 10 ^3/uL (0-1.3) Eosinophils # (Auto) 0 10 ^3/uL (0-0.8) Basophils # (Auto) 0 10 ^3/uL (0-0.2) Nucleated Red Blood Cells 0.4 % Other Laboratory Tests 04/04/24 17:44 04/04/24 13:49 Brief Hx & Hospital Course: 63-year-old female with known history of hypertension with a previous history of chronic AFib currently not on any anticoagulation presented to [facility] with chest pain found to have NSTEMI as well as AFib with RVR. Patient was started on amiodarone drip. As well as heparin drip. Cardiology was consulted for non-STEMI. Patient underwent left heart catheterization which shows evidence of one-vessel coronary artery disease in obtuse marginal. Medical management was recommended. Patient is currently stable to be discharged. Patient's hospital course was eventful for drug withdrawal from illicit drug use. Patient is currently stable to be discharged to home with the home health home safety evaluation with close follow up as as outpatient with the PCP and Cardiology. Condition at Discharge: Stable Final Diagnosis/Problems List 1. NSTEMI status post left heart catheterization she was evidence of one-vessel coronary artery disease in obtuse marginal 2. AFib with RVR, rate controlled 3. Hypertension 4. Chronic illicit drug use Discharge Disposition: [facility] SNF Discharge Will this Physician continue t: No Discharge Instruct/Medications Diet: Cardiac 2g Na,low cholest Activity: No Restrictions, As Tolerated Follow Up/Referral: Follow up with the PCP in 1-2 weeks Follow up with the Cardiology Dr. Blackman in 1-2 weeks Medications: As reconciled and prescribed Discharge Statement: "Patient was advised to return to the ER or call 911 if any headaches, dizziness, shortness of breath, chest pain, abdominal pain, bleeding, fevers, or worsening of medical condition. Patient was counseled about treatment plan, medications, possible side effects, patientverbalized understanding. All questions were answered to the best of my ability. This discharge took greater then 30 minutes in planning, reviewing documentation, counseling the patient, and discussing with other team members." ASSESSMENT ASSESSMENT Assessment 63-year-old female with known history of hypertension with a previous history of chronic AFib currently not on any anticoagulation presented to [facility] with chest pain found to have NSTEMI as well as AFib with RVR. 1. NSTEMI status post left heart catheterization she was evidence of one-vessel coronary artery disease in obtuse marginal 2. AFib with RVR, rate controlled 3. Hypertension 4. Chronic illicit drug use Date of Service: Apr 06, 2024 Billing Provider: MARIAH VEGA MD Common Visit Codes: [id number] DISCH DAY >30min MARIAH VEGA MD Apr 06, 2024 15:06
[2024-04-06 17:00] VITALS: BP 144/71; PULSE 70; RESP 16; TEMP 98.1; O2SAT 94
--- NOTE | 2024-04-06 17:17 | DVHSR ---
APPROVED REPORT EXAM: Two-dimensional and M-mode echocardiogram with Doppler and color Doppler. Blood Pressure: 159/111 mmHg RISK FACTORS Height: 5'5", Weight: 165 DIMENSIONS LVDd4.5 (3.8-5.7cm)LA (2D)4.8 (1.9-4.0cm)Aortic Root3.1 (2.0-3.7cm) LVDs3.8 (2.5-4.0cm)LA (MM) (1.9-4.0cm)Aortic Cusp Exc1.8 (1.5-2.0cm) EF (%) 34.0 (55-70%)Rt. Atrium4.7 (1.9-4.0cm)Asc. Aorta cm IVSd0.9 (0.7-1.1cm)RV (D) (1.8-2.4cm) PWd0.9 (0.7-1.1cm) Mitral Valve MitralMitral Stenosis E wave1.11m/sMV Mean GR.mmHg E/A ratio0.02D MVAcm2 Aortic Valve Aortic ValveAortic Stenosis V10.67m/Margo Mean GR.2mmHg V20.83m/Margo Peak GR.3mmHg LVOT Diameter2.2 (1.8-2.4cm)Doppler AVA3.07cm2 Tricuspid Valve TR Velocity2.33m/s [id number] Other Information Quality : Technically LimitedRhythm : Technically limited study due to body habitus. Conclusion lvef 35% by visual estimate moderate mitral regurg left atrium enlarged moderate mild tricuspid regurg
[2024-04-06 20:00] VITALS: RESP 16
[2024-04-06] MEDS ORDERED: AMIODARONE HCL 200 MG TAB PO SCH (22:00)
== END 2024-04-06 21:30 | disposition home health service (06) | DRG 281 ==
LOC: EDBD 12:53 → EDUNIT# 12:53 → EDSEX 12:53 → ER 12:57 → TELE 14:07 → ER 14:11 → TELE-CENTR 04-05 16:46
PROVIDERS: ADMIT Internal Medicine; ATTEND Internal Medicine
PROC: B211YZZ Fluoroscopy of Multiple Coronary Arteries using Other Contrast (ICD-10-PCS; principal; 2024-04-05)
PROC: 4A023N7 Measurement of Cardiac Sampling and Pressure, Left Heart, Percutaneous Approach (ICD-10-PCS; 2024-04-05)
DX: I21.4 Non-ST elevation (NSTEMI) myocardial infarction (principal); F11.13 Opioid abuse with withdrawal; I48.20 Chronic atrial fibrillation, unspecified; I25.10 Atherosclerotic heart disease of native coronary artery without angina pectoris; E66.9 Obesity, unspecified; F17.210 Nicotine dependence, cigarettes, uncomplicated; I10 Essential (primary) hypertension; Z88.0 Allergy status to penicillin; Z91.199 Patient's noncompliance with other medical treatment and regimen due to unspecified reason; Z68.28 Body mass index [BMI] 28.0-28.9, adult
CPT/HCPCS: 36415; 71045; 80048; 81001; 84484; 85025; 85610; 85730; 93005; 93306; 93458; 99152; 99291; G0378; J2250; Q9967